=== PATIENT | female | born 1935 | race African-American/Black ===

== ENCOUNTER 2022-03-22 13:39 | Inpatient (IN) | payer OTHER ==
[~2022-03-22] VITALS: Ht 167.6 cm; Wt 56.4 kg
[2022-03-22] MEDS ORDERED: SODIUM CHLORIDE 0.9% 1000ML BAG (SEPSIS BOLUS) IV ONE (14:00)
[2022-03-22 14:28] LABS: BASOPHILS % 0.1 % (0.0-2.0); HEMATOCRIT. 44.7 % (36.0-48.0); HEMOGLOBIN. 14.4 g/dL (12.0-16.0); LYMPHOCYTES % 7.9 % (20.0-50.0); MEAN CORPUSCULAR HEMOGLOBIN 31.4 pg (28.0-32.0); MEAN CORPUSCULAR VOLUME 97.4 fL (81.0-99.0); MONOCYTES % 4.4 % (2.0-8.0); NEUTROPHILS % 87.6 % (40.0-76.0); PLATELET 369 x1000/uL (130-400); RED BLOOD CELL COUNT 4.59 mill/uL (4.2-5.4); RED CELL DISTRIBUTION WIDTH 13.3 % (11.6-14.6)
[2022-03-22 14:44] LABS: CHLORIDE 94 mEq/L (98-107)
[2022-03-22] MEDS ORDERED: INSULIN REGULAR (DRIP) 100 UNITS in SODIUM CHLORIDE 0.9% 99 ML IV ONE ×2 (15:30→17:00)
[2022-03-22] MEDS ORDERED: OLANZAPINE 10 MG/VIAL IM ONE (15:30)
[2022-03-22 15:48] LABS: BG BASE EXCESS -7.3 mmol/L (-2.0-2.0); BG DEOXYHEMOGLOBIN 3.4 % (0.0-5.0); BG HCO3 ACT 17.1 mmol/L (22.0-26.0); BG METHEMOGLOBIN 0.3 % (0.0-1.5); BG OXYGEN SATURATION 96.6 % (92.0-98.5); BG OXYHEMOGLOBIN 96.3 % (94.0-97.0); BG PCO2 31.7 mmHg (35.0-45.0); BG PH 7.349 (7.350-7.450); BG PO2 90.4 mmHg (75.0-100.0); BG SAMPLE SITE RIGHT BRACHIAL; BG TOTAL HEMOGLOBIN 15.2 g/dL (12.0-18.0); BG VENT MODE ROOM AIR
[2022-03-22 15:51] LABS: CLARITY URINE CLEAR (CLEAR); COLOR URINE YELLOW (YELLOW); KETONES URINE 2+ (NEGATIVE); LEUKOCYTE ESTERASE URINE 1+ (NEGATIVE); NITRITE URINE NEGATIVE (NEGATIVE); OCCULT BLOOD URINE NEGATIVE (NEGATIVE); PROTEIN URINE NEGATIVE (NEGATIVE); SPECIFIC GRAVITY URINE 1.032 (1.005-1.030); UROBILINOGEN URINE 0.2 E.U./dL (0.2-1.0)
[2022-03-22] MEDS: INSULIN REGULAR 100U/100ML PMX 100 ML IV NR (16:14)
[2022-03-22] MEDS ORDERED: ACETAMINOPHEN 325MG TABLET PO PRN ×2 (17:00)
[2022-03-22] MEDS ORDERED: DIPHENHYDRAMINE 50MG/ML VIAL IV PRN (17:00)
[2022-03-22] MEDS ORDERED: ONDANSETRON HCL 4MG/2ML INJ IV PRN (17:00)
[2022-03-22] MEDS ORDERED: DEXTROSE 50% WATER 25ML (12.5GM) IV PRN (17:15)
[2022-03-22] MEDS ORDERED: DEXTROSE 50% WATER 50ML (25GM) IV PRN (17:15)
[2022-03-22] MEDS ORDERED: INSULIN REGULAR 100U/100ML PMX 100 ML IV SCH (17:15)
[2022-03-22] MEDS: BLOOD SUGAR DIAGNOSTIC STRIP TEST SCH ×7 (17:40→23:30)
[2022-03-22] MEDS: SODIUM CHLORIDE 0.9% 1,000 ML IV SCH ×2 (17:58→23:50)
[2022-03-22] MEDS ORDERED: CEFTRIAXONE 1 G PREMIX 50 ML IV ONE (18:45)
[2022-03-23] MEDS: BLOOD SUGAR DIAGNOSTIC STRIP TEST SCH ×11 (00:18→21:00)
[2022-03-23] MEDS: DEXT 5%/0.45% NACL KCL 10MEQ/L 1,000 ML IV SCH ×2 (00:54→08:45)
[2022-03-23 04:21] LABS: BASOPHILS % 0.1 % (0.0-2.0); EOSINOPHILS % 0.1 % (0.0-5.0); HEMATOCRIT. 40.6 % (36.0-48.0); HEMOGLOBIN. 13.1 g/dL (12.0-16.0); LYMPHOCYTES % 12.5 % (20.0-50.0); MEAN CORPUSCULAR HEMOGLOBIN 31.1 pg (28.0-32.0); MEAN CORPUSCULAR VOLUME 96.2 fL (81.0-99.0); MEAN PLATELET VOLUME 7.4 fl (7.4-10.4); MONOCYTES % 7.2 % (2.0-8.0); NEUTROPHILS % 80.1 % (40.0-76.0); PLATELET 296 x1000/uL (130-400); RED BLOOD CELL COUNT 4.22 mill/uL (4.2-5.4); RED CELL DISTRIBUTION WIDTH 13.1 % (11.6-14.6)
[2022-03-23 04:43] LABS: CHLORIDE 119 mEq/L (98-107)
[2022-03-23 04:50] LABS: PHOSPHORUS 1.9 mg/dL (2.5-4.9)
[2022-03-23] MEDS: INSULIN REGULAR 100U/100ML PMX 100 ML IV NR (04:58)
[2022-03-23] MEDS ORDERED: CLONIDINE 0.1MG TABLET PO PRN (09:15)
[2022-03-23] MEDS ORDERED: DEXTROSE 50% WATER 50ML SYRINGE IV PRN (09:15)
[2022-03-23] MEDS ORDERED: HYDRALAZINE 20MG/ML VIAL IV PRN (09:15)
[2022-03-23] MEDS: PANTOPRAZOLE SODIUM 40 MG/VIAL IV SCH (09:38)
[2022-03-23] MEDS ORDERED: POTASSIUM PHOS,M-BASIC-D-BASIC 30 MMOL in SODIUM CHLORIDE 0.9% 500 ML IV SCH (10:00)
[2022-03-23 10:55] VITALS: BP 156/100
[2022-03-23 11:22] VITALS: BP 156/100
[2022-03-23] MEDS: INSULIN LISPRO 100 UNITS/ML SUBCUT SCH ×3 (12:13→22:21)
[2022-03-23] MEDS: SODIUM CHL 0.45% + KCL 20MEQ/L 1,000 ML IV SCH ×2 (12:19→12:37)
[2022-03-23] MEDS: METOPROLOL TARTRATE 25MG TABLET PO SCH ×2 (12:24→21:00)
[2022-03-23] MEDS: INSULIN GLARGINE 100 UNITS/ML SUBCUT SCH (12:30)
[2022-03-23] MEDS ORDERED: OLANZAPINE 10 MG/VIAL IM PRN (14:00)
[2022-03-23 16:00] VITALS: BP 141/82
[2022-03-23 20:00] VITALS: BP 105/64
[2022-03-23 22:00] VITALS: BP 101/56
[2022-03-24] VITALS (7 sets, daily range): BP systolic 102–163; BP diastolic 58–98
[2022-03-24] MEDS: SODIUM CHL 0.45% + KCL 20MEQ/L 1,000 ML IV SCH ×2 (04:37→06:00)
[2022-03-24] MEDS: BLOOD SUGAR DIAGNOSTIC STRIP TEST SCH ×4 (06:33→20:42)
[2022-03-24 06:56] LABS: BASOPHILS % 0.4 % (0.0-2.0); EOSINOPHILS % 1.7 % (0.0-5.0); HEMATOCRIT. 35.9 % (36.0-48.0); LYMPHOCYTES % 20.7 % (20.0-50.0); MEAN CORPUSCULAR HEMOGLOBIN 31.9 pg (28.0-32.0); MEAN CORPUSCULAR VOLUME 95.6 fL (81.0-99.0); MEAN PLATELET VOLUME 7.9 fl (7.4-10.4); MONOCYTES % 7.8 % (2.0-8.0); NEUTROPHILS % 69.4 % (40.0-76.0); PLATELET 220 x1000/uL (130-400); RED BLOOD CELL COUNT 3.75 mill/uL (4.2-5.4); RED CELL DISTRIBUTION WIDTH 13.2 % (11.6-14.6)
[2022-03-24 07:56] LABS: CHLORIDE 119 mEq/L (98-107)
[2022-03-24 08:05] LABS: PHOSPHORUS 3.5 mg/dL (2.5-4.9)
[2022-03-24] MEDS: METOPROLOL TARTRATE 25MG TABLET PO SCH ×2 (08:32→20:37)
[2022-03-24] MEDS: PANTOPRAZOLE SODIUM 40 MG/VIAL IV SCH (08:32)
[2022-03-24] MEDS: INSULIN GLARGINE 100 UNITS/ML SUBCUT SCH (08:33)
[2022-03-24] MEDS: INSULIN LISPRO 100 UNITS/ML SUBCUT SCH ×4 (08:33→20:45)
[2022-03-25 03:50] VITALS: BP 157/86
[2022-03-25] MEDS: BLOOD SUGAR DIAGNOSTIC STRIP TEST SCH ×2 (07:16→11:55)
[2022-03-25 08:00] VITALS: BP 154/94
[2022-03-25] MEDS: INSULIN LISPRO 100 UNITS/ML SUBCUT SCH ×2 (08:47→12:01)
[2022-03-25] MEDS: INSULIN GLARGINE 100 UNITS/ML SUBCUT SCH (08:49)
[2022-03-25] MEDS: METOPROLOL TARTRATE 25MG TABLET PO SCH (08:50)
[2022-03-25] MEDS ORDERED: FAMOTIDINE 20MG/2ML VIAL IV SCH (09:00)
[2022-03-25 09:04] VITALS: BP 154/94
[2022-03-25 11:52] LABS: CHLORIDE 105 mEq/L (98-107)
[2022-03-25 12:00] VITALS: BP 144/69
== END 2022-03-25 15:04 | disposition home or self-care (01) | DRG 637 ==
LOC: ER 13:48 → EDBEDREQSVC 16:23 → EDBEDREQ 16:23 → 3WST 03-23 06:05 → SUPCPDRO 03-23 09:11 → EDBEDREQSVC 03-23 09:12
PROVIDERS: ADMIT Internal Medicine; ATTEND Internal Medicine
DX: E11.10 Type 2 diabetes mellitus with ketoacidosis without coma (principal); G93.41 Metabolic encephalopathy; N17.9 Acute kidney failure, unspecified; E87.0 Hyperosmolality and hypernatremia; E83.39 Other disorders of phosphorus metabolism; Z20.822 Contact with and (suspected) exposure to COVID-19; E86.0 Dehydration; F03.90 Unspecified dementia, unspecified severity, without behavioral disturbance, psychotic disturbance, mood disturbance, and anxiety; E78.5 Hyperlipidemia, unspecified; I10 Essential (primary) hypertension; E78.00 Pure hypercholesterolemia, unspecified; Z79.4 Long term (current) use of insulin
CPT/HCPCS: 36415; 36600; 71045; 80048; 80053; 81003; 82010; 82375; 82805; 82962; 83036; 83605; 83735; 83880; 84100; 84145; 84484; 85025; 87426; 87804; 93005; 99291; C9113; C9803; J0360; J0696; J1815; J3480; J3490; J7030; J7040; J7050